=== PATIENT | male | born 1980 | race Caucasian/White ===

== ENCOUNTER 2020-10-11 12:23 | Outpatient (CLI) | payer OTHER, SELFPAY ==
[2020-10-11 13:52] LABS: SARS Covid-2 Antigen Negative (Negative)
[2020-10-12 17:41] LABS: Coronavirus Test Green County Not Detected
== END 2020-10-11 12:24 | disposition home or self-care (01) ==
LOC: LAB 12:29
PROVIDERS: PCP Internal Medicine; Visit Provider Family Medicine
DX: Z20.828 Contact with and (suspected) exposure to other viral communicable diseases (principal)
CPT/HCPCS: 87426; 87635

== ENCOUNTER 2020-12-17 20:28 | Outpatient (CLI) | payer OTHER, SELFPAY ==
[2020-12-18 16:25] LABS: Coronavirus Test Green County Not Detected
== END 2020-12-17 20:29 | disposition home or self-care (01) ==
LOC: LAB 20:31
PROVIDERS: PCP Internal Medicine; Visit Provider Family Medicine
DX: Z11.52 Encounter for screening for COVID-19 (principal)
CPT/HCPCS: 87635

== ENCOUNTER 2021-04-14 10:54 | Outpatient (CLI) | payer OTHER, SELFPAY ==
[2021-04-14 11:34] LABS: Basophils % 0.6 %; Eosinophils # 0.1 10^3/uL (0.0-0.8); Hematocrit 47.6 % (42.0-52.0); Hemoglobin 15.3 g/dL (11.7-16.6); Lymphocytes # 2.2 10^3/uL (0.8-4.8); Mean Corpuscular HGB Conc 32.1 g/dL (30.0-36.0); Mean Corpuscular Hemoglobin 27.7 pg (28.0-34.0); Mean Corpuscular Volume 86.1 fL (80-94); Mean Platelet Volume 9.5 fL (7.4-10.4); Monocytes # 0.6 10^3/uL (0.2-0.9); Monocytes % 8.5 %; Neutrophils # 4.01 10^3/uL (1.8-7.7); Neutrophils % 57.5 %; Nucleated Red Blood Cells % 0 %; Platelet Count 252 10^3/cmm (130-400); Red Blood Count 5.53 10^6/uL (4.1-5.3); Red Cell Distribution Width 13.2 % (12.1-15.1)
[2021-04-14 11:56] LABS: HCG Tumor Marker 1 mIU/mL (0-3)
[2021-04-14 12:08] LABS: Alanine Aminotransferase 23 U/L (0-41); Albumin Level 4.2 g/dL (3.5-5.2); Alkaline Phosphatase 96 IU/L (40-130); Anion Gap 12.6 (5-19); Aspartate Amino Transferase 22 U/L (0-40); Blood Urea Nitrogen 9 mg/dL (6-20); Calcium 8.9 mg/dL (8.5-10.5); Carbon Dioxide 31 mmol/L (22-29); Chloride 101 mmol/L (98-107); Chol HDL Ratio 6.05 mg/dL (1.0-5.00); Cholesterol 242 mg/dL (0-200); Creatine Phosphokinase 166 U/L (39-308); Globulin 3.3 g/dL (1.3-4.6); Glomerular Filtration Rate 126.2 mL/min (90-130); Glucose 96 mg/dL (65-115); HDL Cholesterol 40 mg/dL (60-100); LDL Cholesterol Calculated 134 mg/dL (50-129); LDL HDL Ratio 3.35 RATIO (0.00-3.22); Lactate Dehydrogenase 179 U/L (135-225); Osmolality Calculated 289 mOsm/kg (285-295); Potassium 4.6 mmol/L (3.5-5.1); Sodium 140 mmol/L (136-145); Total Bilirubin 0.7 mg/dL (0.15-1.2); Total Protein 7.5 g/dL (6.6-8.7); Triglycerides 342 mg/dL (0-150)
[2021-04-14 13:19] LABS: Tumor Marker Alpha Fetoprotein 2.2 ng/mL (0-8.3)
[2021-04-14 15:45] LABS: Estmated Average Glucose 114; Hemoglobin A1C 5.6 % (4.0-6.0)
== END 2021-04-14 10:55 | disposition home or self-care (01) ==
PROVIDERS: Student in an Organized Health Care Education/Training Program; PCP Internal Medicine; Visit Provider Internal Medicine
DX: Z00.00 Encounter for general adult medical examination without abnormal findings (principal)
CPT/HCPCS: 36415; 80053; 80061; 82105; 82550; 83036; 83615; 84702; 85025

== ENCOUNTER 2022-06-02 11:33 | Outpatient (CLI) | payer OTHER, SELFPAY ==
[2022-06-02 12:03] LABS: Basophils % 0.6 %; Eosinophils # 0.1 10^3/uL (0.0-0.8); Eosinophils % 1.5 %; Hematocrit 46.5 % (42.0-52.0); Hemoglobin 15.3 g/dL (11.7-16.6); Lymphocytes # 2.3 10^3/uL (0.8-4.8); Lymphocytes % 33.3 %; Mean Corpuscular HGB Conc 32.9 g/dL (30.0-36.0); Mean Corpuscular Hemoglobin 27.5 pg (28.0-34.0); Mean Corpuscular Volume 83.5 fl (80-94); Mean Platelet Volume 9.5 fL (7.4-10.4); Monocytes # 0.6 10^3/uL (0.2-0.9); Monocytes % 8.4 %; Neutrophils % 55.8 %; Nucleated Red Blood Cells % 0 %; Platelet Count 258 10^3/cmm (130-400); Red Blood Count 5.57 10^6/uL (4.1-5.3); Red Cell Distribution Width 13.5 % (12.1-15.1); White Blood Count 6.8 10^3/uL (4.0-10.0)
[2022-06-02 12:37] LABS: Estmated Average Glucose 114; Hemoglobin A1C 5.6 % (4.0-6.0)
[2022-06-02 12:58] LABS: HCG Tumor Marker 1 mIU/mL (0-3)
[2022-06-02 13:09] LABS: Alanine Aminotransferase 26 U/L (0-41); Albumin Level 4.5 g/dL (3.5-5.2); Alkaline Phosphatase 103 IU/L (40-130); Anion Gap 14.7 (5-19); Aspartate Amino Transferase 25 U/L (0-40); Blood Urea Nitrogen 10 mg/dL (6-20); Calcium 9.4 mg/dL (8.5-10.5); Carbon Dioxide 28 mmol/L (22-29); Chloride 103 mmol/L (98-107); Chol HDL Ratio 5.95 mg/dL (1.0-5.00); Cholesterol 232 mg/dL (0-200); Creatine Phosphokinase 189 U/L (39-308); Globulin 3.1 g/dL (1.3-4.6); Glucose 87 mg/dL (65-115); HDL Cholesterol 39 mg/dL (60-100); LDL Cholesterol Calculated 139 mg/dL (50-129); LDL HDL Ratio 3.56 RATIO (0.00-3.22); Lactate Dehydrogenase 207 U/L (135-225); Osmolality Calculated 290 mOsm/kg (285-295); Potassium 4.7 mmol/L (3.5-5.1); Sodium 141 mmol/L (136-145); Total Bilirubin 0.5 mg/dL (0.15-1.2); Total Protein 7.6 g/dL (6.6-8.7); Triglycerides 268 mg/dL (0-150)
[2022-06-02 13:52] LABS: Tumor Marker Alpha Fetoprotein 2.4 ng/mL (0-8.3)
[2022-06-02 14:26] LABS: 25 Hydroxy Vitamin D 22 ng/mL (30-100)
== END 2022-06-02 11:34 | disposition home or self-care (01) ==
LOC: LAB 11:37
PROVIDERS: PCP Internal Medicine; Visit Provider Internal Medicine
DX: Z01.89 Encounter for other specified special examinations (principal)
CPT/HCPCS: 36415; 80053; 80061; 82105; 82306; 82550; 83036; 83615; 84702; 85025

== ENCOUNTER 2022-06-27 11:16 | Outpatient (CLI) | payer OTHER, SELFPAY ==
[2022-06-27 13:40] LABS: Adenovirus Not Detected (NOT DETECT); Chlamydia Pneumoniae Not Detected (NOT DETECT); Coronavirus 229E,HKU1,NL63,OC4 Not Detected (NOT DETECT); Human Metapneumovirus Not Detected (NOT DETECT); Human Rhinovirus/Enterovirus Not Detected (NOT DETECT); Influenza A Not Detected (NOT DETECT); Influenza A H1 Not Detected (NOT DETECT); Influenza A H1-2009 Not Detected (NOT DETECT); Influenza A H3 Not Detected (NOT DETECT); Influenza B Not Detected (NOT DETECT); Mycoplasma Pneumoniae Not Detected (NOT DETECT); Parainfluenza Virus Type 1 Not Detected (NOT DETECT); Parainfluenza Virus Type 2 Not Detected (NOT DETECT); Parainfluenza Virus Type 3 Not Detected (NOT DETECT); Parainfluenza Virus Type 4 Not Detected (NOT DETECT); Respiratory Syncytial Virus A Not Detected (NOT DETECT); Respiratory Syncytial Virus B Not Detected (NOT DETECT); SARS-COV-2 Detected (NOT DETECT)
== END 2022-06-27 11:17 | disposition home or self-care (01) ==
PROVIDERS: PCP Internal Medicine; Visit Provider Family Medicine
DX: Z20.822 Contact with and (suspected) exposure to COVID-19 (principal)
CPT/HCPCS: 87635

== ENCOUNTER 2023-01-25 16:40 | Outpatient (CLI) | payer OTHER, SELFPAY ==
[2023-01-25 18:58] LABS: Adenovirus Not Detected (NOT DETECT); Chlamydia Pneumoniae Not Detected (NOT DETECT); Coronavirus 229E,HKU1,NL63,OC4 Not Detected (NOT DETECT); Human Metapneumovirus Not Detected (NOT DETECT); Human Rhinovirus/Enterovirus Not Detected (NOT DETECT); Influenza A Not Detected (NOT DETECT); Influenza A H1 Not Detected (NOT DETECT); Influenza A H1-2009 Not Detected (NOT DETECT); Influenza A H3 Not Detected (NOT DETECT); Influenza B Not Detected (NOT DETECT); Mycoplasma Pneumoniae Not Detected (NOT DETECT); Parainfluenza Virus Type 1 Not Detected (NOT DETECT); Parainfluenza Virus Type 2 Not Detected (NOT DETECT); Parainfluenza Virus Type 3 Not Detected (NOT DETECT); Parainfluenza Virus Type 4 Not Detected (NOT DETECT); Respiratory Syncytial Virus A Not Detected (NOT DETECT); Respiratory Syncytial Virus B Not Detected (NOT DETECT); SARS-COV-2 Not Detected (NOT DETECT)
== END 2023-01-25 16:41 | disposition home or self-care (01) ==
LOC: LAB 16:40
PROVIDERS: PCP Internal Medicine; Visit Provider Family Medicine
DX: Z01.89 Encounter for other specified special examinations (principal)
CPT/HCPCS: 87486; 87581; 87633

== ENCOUNTER 2023-04-22 07:45 | Outpatient (CLI) | payer OTHER, SELFPAY ==
[2023-04-22 08:06] LABS: Basophils % 0.6 %; Eosinophils # 0.2 10^3/uL (0.0-0.8); Eosinophils % 3.4 %; Hematocrit 48.9 % (42.0-52.0); Lymphocytes # 2.7 10^3/uL (0.8-4.8); Lymphocytes % 39.6 %; Mean Corpuscular HGB Conc 32.7 g/dL (30.0-36.0); Mean Corpuscular Hemoglobin 27.4 pg (28.0-34.0); Mean Corpuscular Volume 83.7 fl (80-94); Mean Platelet Volume 9.3 fL (7.4-10.4); Monocytes # 0.5 10^3/uL (0.2-0.9); Monocytes % 7.9 %; Neutrophils # 3.31 10^3/uL (1.8-7.7); Neutrophils % 48.2 %; Nucleated Red Blood Cells % 0 %; Platelet Count 252 10^3/cmm (130-400); Red Blood Count 5.84 10^6/uL (4.1-5.3); Red Cell Distribution Width 13.9 % (12.1-15.1); White Blood Count 6.9 10^3/uL (4.0-10.0)
[2023-04-22 08:30] LABS: Estmated Average Glucose 120; Hemoglobin A1C 5.8 % (4.0-6.0)
[2023-04-22 08:36] LABS: Free T4 Free Thyroxine 1.45 ng/dL (0.82-1.77); HCG Tumor Marker 1 mIU/mL (0-3); Thyroid Stimulating Hormone 2.23 uIU/mL (0.27-4.20); Tumor Marker Alpha Fetoprotein 2.4 ng/mL (0-8.3)
[2023-04-22 08:47] LABS: Alanine Aminotransferase 24 U/L (0-41); Albumin Level 4.2 g/dL (3.5-5.2); Alkaline Phosphatase 108 U/L (40-130); Anion Gap 13.3 (5-19); Aspartate Amino Transferase 21 U/L (0-40); Blood Urea Nitrogen 7 mg/dL (6-20); Carbon Dioxide 30 mmol/L (22-29); Chloride 101 mmol/L (98-107); Chol HDL Ratio 6.18 mg/dL (1.0-5.00); Cholesterol 235 mg/dL (0-200); Globulin 3.5 g/dL (1.3-4.6); Glomerular Filtration Rate 124.9 mL/min (90-130); Glucose 92 mg/dL (65-115); HDL Cholesterol 38 mg/dL (60-100); LDL Cholesterol Calculated 155 mg/dL (50-129); LDL HDL Ratio 4.08 RATIO (0.00-3.22); Lactate Dehydrogenase 164 U/L (135-225); Osmolality Calculated 288 mOsm/kg (285-295); Potassium 4.3 mmol/L (3.5-5.1); Sodium 140 mmol/L (136-145); Total Bilirubin 0.9 mg/dL (0.15-1.2); Total Protein 7.7 g/dL (6.6-8.7); Triglycerides 212 mg/dL (0-150)
[2023-04-22 09:22] LABS: 25 Hydroxy Vitamin D 22 ng/mL (30-100)
== END 2023-04-22 07:46 | disposition home or self-care (01) ==
PROVIDERS: PCP Family Medicine; Visit Provider Family Medicine
DX: C62.90 Malignant neoplasm of unspecified testis, unspecified whether descended or undescended (principal); E78.5 Hyperlipidemia, unspecified; E55.9 Vitamin D deficiency, unspecified
CPT/HCPCS: 36415; 80053; 80061; 82105; 82306; 83036; 83615; 84439; 84443; 84702; 85025

== ENCOUNTER → 2023-11-24 09:04 | Outpatient (BNVA) | payer OTHER, SELFPAY | PROVIDERS: PCP Family Medicine; Visit Provider Family Medicine | DX: E78.5 Hyperlipidemia, unspecified (principal); E55.9 Vitamin D deficiency, unspecified | CPT/HCPCS: 80053; 80061; 82306 ==

== ENCOUNTER 2024-05-10 05:01 | Emergency (ER) | payer OTHER, SELFPAY ==
[2024-05-10 05:02] VITALS: BP 152/99; PULSE 97; RESP 16; TEMP 36.6; O2SAT 95; BMI 27.8
--- NOTE | 2024-05-10 05:12 | CTR_ITS ---
PROCEDURE INFORMATION: Exam: CT Lumbar Spine Without Contrast Exam date and time: 05/10/2024 5:42 AM Age: 43 years old Clinical indication: Low back pain; Additional info: Sudden pain from missed step, HX of testicular cancer, TECHNIQUE: Imaging protocol: Computed tomography of the lumbar spine without contrast. Radiation optimization: All CT scans at this facility use at least one of these dose optimization techniques: automated exposure control; mA and/or kV adjustment per patient size (includes targeted exams where dose is matched to clinical indication); or iterative reconstruction. COMPARISON: CT abdomen pelvis wo con [id number] 05/10/2024 5:40 AM RADIATION DOSE METRICS: Total DLP (mGy-cm): 879 FINDINGS: Bones/joints: Minor nonspecific area of sclerosis left iliac bone. Degenerative hypertrophic vertebral body formation. Degenerative endplate irregularity. Narrowing of L1, L2, L4 and L5 interspaces. Focal posterior disc margin calcification L5-S1. No acute fracture. L1-L2: No significant disc bulge or herniation. No severe spinal canal stenosis. No significant neural foraminal narrowing. L2-L3: No significant disc bulge or herniation. No severe spinal canal stenosis. No significant neural foraminal narrowing. L3-L4: No significant disc bulge or herniation. No severe spinal canal stenosis. No significant neural foraminal narrowing. L4-L5: Posterior diffuse broad-based disc bulge. Mild facet arthritis and ligamentum flavum thickening manifest mild central canal stenosis. Mild inferior neural foraminal narrowing. L5-S1: No severe canal stenosis. Soft tissues: Unremarkable. CT/CT lumbar spine wo con* [id number] IMPRESSION: 1. Degenerative hypertrophic formation and facet arthritis. 2. Posterior diffuse broad-based disc bulge L4-L5.
--- NOTE | 2024-05-10 05:16 | CTR_ITS ---
PROCEDURE INFORMATION: Exam: CT Abdomen And Pelvis Without Contrast Exam date and time: 05/10/2024 5:40 AM Age: 43 years old Clinical indication: Other: Pain low back; Prior surgery; Surgery date: 6+ months; Surgery type: Orchiectomy; Additional info: Missed step hurt sacrum/post pelvis, R hip, hxtesticularcanc TECHNIQUE: Imaging protocol: Computed tomography of the abdomen and pelvis without contrast. Radiation optimization: All CT scans at this facility use at least one of these dose optimization techniques: automated exposure control; mA and/or kV adjustment per patient size (includes targeted exams where dose is matched to clinical indication); or iterative reconstruction. COMPARISON: No relevant prior studies available. RADIATION DOSE METRICS: Total DLP (mGy-cm): 825.8 FINDINGS: Liver: Normal. No mass. Gallbladder and biliary ducts: Normal. No calcified stones. No ductal dilation. Pancreas: Normal. No ductal dilation. Spleen: Normal. No splenomegaly. Adrenal glands: Normal. No mass. Kidneys and ureters: Normal. No hydronephrosis. Stomach and bowel: Unremarkable. No obstruction. No mucosal thickening. Appendix: No evidence of appendicitis. Intraperitoneal space: Unremarkable. No free air. No significant fluid collection. Vasculature: Unremarkable. No abdominal aortic aneurysm. Lymph nodes: A few scattered retroperitoneal lymph nodes largest on the left measures 1.8 cm. Urinary bladder: Unremarkable as visualized. Reproductive: Unremarkable as visualized. Bones/joints: Degenerative change of the spine. Soft tissues: Unremarkable. Other findings: Question segment of abnormal wall thickening versus nondistention at the level of the upper rectum. CT/CT abdomen pelvis con [id number] IMPRESSION: 1. No acute intra-abdominal abnormality. 2. Question segment of abnormal wall thickening versus nondistention of the level of the upper rectum or rectosigmoid junction. 3. Small nonspecific retroperitoneal lymph nodes largest on the left 1.8 cm.
--- NOTE | 2024-05-10 05:17 | ED_ITS ---
Documented by User: Paulino Taylor DO 05/10/24 18:11 HPI - Extremity Problem 2 General: Chief complaint: Extremity Injury, Lower Stated complaint: back pain Time Seen by Provider: 05/10/24 05:05 History of Present Illness: Patient comes in today with visible pain in his low back and sacrum right hip region. And also his right lateral calf area. Patient said he was working outside yesterday in his yard and carrying some stuff backing up when he missed a step and Stumbled. He did not have instant pain in these areas but about an hour later the pain came on and just gradually got worse to the was unbearable. Patient tried anti-inflammatories, muscle relaxers, creams and rubs, and prednisone none of these helped much at all. Patient only slept about 2 hours last night. The pain is there all the time. The pain is less when the patient bends over at the waist and rests his upper body on his elbows on the table. lifting the right leg a few inches off the ground also helps some. Patient does have a history of testicular cancer with orchiectomy proximately 22 years ago. Patient and are concerned about pathologic fracture and/or return of the cancer. Patient states he had this once before several years ago but it was nowhere near to this bad and it resolved itself in about 10 days. 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 Surgical History History of unilateral orchiectomy Family History Mother Cancer breast Other Diabetes Hyperlipidemia Hypertension Denies family history of CAD (coronary artery disease) Clotting disorder Dementia Psychiatric illness Chronic kidney disease (CKD) Anesthesia complication Bleeding disorder Lung disease Stroke Social History Smoking and tobacco/nicotine status: never used tobacco/nicotine Alcohol intake: never Substance/Drug Use: never Lives independently: Yes Marital status: Current occupational status: employed Current occupation: Hospitalist [employer] Physical Exam 2 Const: COMMON NORMALS: average body habitus, patient oriented x3, no limitations, healthy appearing, alert and well nourished HENMT: COMMON NORMALS: normocephalic, atraumatic, hearing grossly normal bilaterally, external ears normal, Normal external nose present and moist oral mucous membranes HEAD & SCALP: normocephalic and atraumatic NOSE: Normal external nose present EXTERNAL EAR: Yes external ears normal Neck/C-Spine: COMMON NORMALS: no JVD Chest: COMMONS NORMALS: normal inspection of the chest Resp: COMMON NORMALS: normal respiratory effort, No retractions and No use of accessory muscles Cardio: COMMON NORMALS: no JVD, regular rate and regular rhythm RATE: r egular rate RHYTHM: regular rhythm GI: COMMON NORMALS: Normal to inspection, nondistended, normoactive bowel sounds present Back/Pelvis: OTHER: Minimally tender to palpate over right lower lumbar paraspinal area More painful to palpate over right gluteus, hip trochanter region. Neuro: COMMON NORMALS: patient oriented x3 SENSORIUM/ORIENTATION: Yes alert Course 2 Vital Signs: Vital signs: Vital Signs Temperature 97.9 F 05/10/24 05:02 Pulse Rate 96 05/10/24 07:40 Respiratory Rate 18 05/10/24 09:10 Blood Pressure 134/94 05/10/24 09:10 Pulse Oximetry 98 05/10/24 09:10 Oxygen Delivery Me thod Room Air 05/10/24 09:09 MDM - Extremity (Nontraumatic) Medical Decision Making Care transferred over to Dr. Padron at shift change, patient was given 30 mg Toradol IM, lumbar CT and abdominal pelvis CT without contrast were obtained. Awaiting results. Lab Data I reviewed the patient's lab results. 05/10/24 05:24 05/10/24 05:24 Radiology Impressions Lumbar Spine CT 05/10/24 05:12 IMPRESSION: 1. Degenerative hypertrophic formation and facet arthritis. 2. Posterior diffuse broad-based disc bulge L4-L5. Abdomen/Pelvis CT 05/10/24 05:16 IMPRESSION: 1. No acute intra-abdominal abnormality. 2. Question segment of abnormal wall thickening versus nondistention of the level of the upper rectum or rectosigmoid junction. 3. Small nonspecific retroperitoneal lymph nodes largest on the left 1.8 cm. Laboratory Results WBC 7.87 10^3/uL (3.29-11.43) 05/10/24 05:24 RBC 5.59 10^6/uL (3.85-5.65) 05/10/24 05:24 Hgb 15.50 g/dL (11.27-16.99) 05/10/24 05:24 Hct 46.7 % (37-53) 05/10/24 05:24 MCV 83.5 fl (82-101) 05/10/24 05:24 MCH 27.7 pg (27-33) 05/10/24 05:24 MCHC 33.2 g/dL (30-55) 05/10/24 05:24 RDW 13.6 % (12.1-15.1) 05/10/24 05:24 Plt Count 250 10^3/cmm (157-399) 05/10/24 05:24 MPV 9.8 fL (7.4-10.4) 05/10/24 05:24 Neut % (Auto) 84.9 % 05/10/24 05:24 Lymph % (Auto) 14.0 % 05/10/24 05:24 Crosby % (Auto) 0.4 % 05/10/24 05:24 Eos % (Auto) 0.1 % 05/10/24 05:24 Baso % (Auto) 0.1 % 05/10/24 05:24 Neut # (Auto) 6.68 10^3/uL (1.8-7.7) 05/10/24 05:24 Lymph # (Auto) 1.1 10^3/uL (0.8-4.8) 05/10/24 05:24 Crosby # (Auto) 0.0 10^3/uL (0.2-0.9) L 05/10/24 05:24 Eos # (Auto) 0.0 10^3/uL (0.0-0.8) 05/10/24 05:24 Baso # (Auto) 0.0 10^3/uL (0.0-0.1) 05/10/24 05:24 Nucleated RBC % (auto) 0 % 05/10/24 05:24 Nucleated RBCs # 0.0 /100WBC 05/10/24 05:24 Sodium 141 mmol/L (136-145) 05/10/24 05:24 Potassium 4.5 mmol/L (3.5-5.1) 05/10/24 05:24 Chloride 103 mmol/L (98-107) 05/10/24 05:24 Carbon Dioxide 25 mmol/L (22-29) 05/10/24 05:24 Anion Gap 17.5 (5-19) 05/10/24 05:24 BUN 10 mg/dL (6-20) 05/10/24 05:24 Creatinine 0.7 mg/dL (0.7-1.2) 05/10/24 05:24 GFR Calculation 124.3 mL/min (90-130) 05/10/24 05:24 Glucose 220 mg/dL (65-115) H 05/10/24 05:24 Calculated Osmolality 298 mOsm/kg (285-295) H 05/10/24 05:24 Calcium 9.1 mg/dL (8.5-10.5) 05/10/24 05:24 Total Bilirubin 0.7 mg/dL (0.15-1.2) 05/10/24 05:24 AST 25 U/L (0-40) 05/10/24 05:24 ALT 30 U/L (0-41) 05/10/24 05:24 Alkaline Phosphatase 105 U/L (40-130) 05/10/24 05:24 C-Reactive Protein 3.0 mg/L (0.0-4.9) 05/10/24 05:24 Total Protein 8.0 g/dL (6.6-8.7) 05/10/24 05:24 Albumin 4.6 g/dL (3.5-5.2) 05/10/24 05:24 Globulin 3.4 g/dL (1.3-4.6) 05/10/24 05:24 All radiology interpretation(s) finalized by discharge Discharge Plan Discharge Patient Disposition: Home Clinical Impression: Lumbar radiculopathy, right Condition: Stable Prescriptions: New tizanidine 4 mg tablet 4 mg PO Q6H PRN (Reason: muscle spasticity) Qty: 20 0RF Rx Instructions: do not exceed 3 doses per 24 hrs hydrocodone-acetaminophen 5-325 mg tablet 1 tab PO Q6H PRN (Reason: pain) Qty: 25 0RF prednisone 20 mg tablet 20 mg PO TID Qty: 15 0RF Rx Instructions: 1 p.o. 3 times daily x3 days, 1 p.o. twice daily x2 days, 1 p.o. daily x2 days diclofenac sodium 75 mg tablet,delayed release (DR/EC) 75 mg PO Q12H PRN (Reason: pain) Qty: 20 0RF No Action simvastatin 20 mg tablet 20 mg PO DAILY Qty: 90 4RF losartan 25 mg tablet 25 mg PO DAILY Discharge Orders: Discharge ED (Routine); Ordered 05/10/24 Ordered By: Augusto Vincent Referrals: Best Sargent MD [Primary Care Provider] - Patient Instructions: Lumbar Radiculopathy (ED), Lower Back Exercises (ED), Opioid Safety, Pain Management Activity Restrictions/Additional Instructions: Thank you for choosing [facility] for your healthcare needs today. It is very important that you follow up as instructed or that you return to the Emergency Department should you have concerns or if your condition changes or worsens in any way. Follow-up with your primary care doctor if not improving for consideration of physical therapy and/or advanced imaging as appropriate. Sign Out Sign Out Data: Patient Sign Out occurred on 05/10/24 at 06:13. Patient's care was discussed, and care was transferred from Paulino Taylor DO to Augusto Vincent DO. 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 Surgical History History of unilateral orchiectomy Family History Mother Cancer breast Other Diabetes Hyperlipidemia Hypertension Denies family history of CAD (coronary artery disease) Clotting disorder Dementia Psychiatric illness Chronic kidney disease (CKD) Anesthesia complication Bleeding disorder Lung disease Stroke Social History Smoking and tobacco/nicotine status: never used tobacco/nicotine Alcohol intake: never Substance/Drug Use: never Lives independently: Yes Marital status: Current occupational status: employed 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 Padron at shift change, patient was given 30 mg Toradol IM, lumbar CT and abdominal pelvis CT without contrast were obtained. Awaiting results. Care assumed at change of shift. Patient given Norflex dexamethasone eventually was able to convince him to allow us to give him some morphine. Will give him titrated doses and he did get moderate relief of his symptoms. CT shows a L4-5 disc impingement consistent with the findings on his exam and history. Discharge him home on a steroid taper tizanidine to take as needed as well as diclofenac to use as needed and hydrocodone as needed. Encouraged him to follow-up with his primary care doctor if not improving for consideration of PT and/or advanced imaging as deemed appropriate. Return if pain is not controlled. Lab Data 05/10/24 05:24 05/10/24 05:24 Radiology Impressions Lumbar Spine CT 05/10/24 05:12 IMPRESSION: 1. Degenerative hypertrophic formation and facet arthritis. 2. Posterior diffuse broad-based disc bulge L4-L5. Abdomen/Pelvis CT 05/10/24 05:16 IMPRESSION: 1. No acute intra-abdominal abnormality. 2. Question segment of abnormal wall thickening versus nondistention of the level of the upper rectum or rectosigmoid junction. 3. Small nonspecific retroperitoneal lymph nodes largest on the left 1.8 cm. Laboratory Results WBC 7.87 10^3/uL (3.29-11.43) 05/10/24 05:24 RBC 5.59 10^6/uL (3.85-5.65) 05/10/24 05:24 Hgb 15.50 g/dL (11.27-16.99) 05/10/24 05:24 Hct 46.7 % (37-53) 05/10/24 05:24 MCV 83.5 fl (82-101) 05/10/24 05:24 MCH 27.7 pg (27-33) 05/10/24 05:24 MCHC 33.2 g/dL (30-55) 05/10/24 05:24 RDW 13.6 % (12.1-15.1) 05/10/24 05:24 Plt Count 250 10^3/cmm (157-399) 05/10/24 05:24 MPV 9.8 fL (7.4-10.4) 05/10/24 05:24 Neut % (Auto) 84.9 % 05/10/24 05:24 Lymph % (Auto) 14.0 % 05/10/24 05:24 Crosby % (Auto) 0.4 % 05/10/24 05:24 Eos % (Auto) 0.1 % 05/10/24 05:24 Baso % (Auto) 0.1 % 05/10/24 05:24 Neut # (Auto) 6.68 10^3/uL (1.8-7.7) 05/10/24 05:24 Lymph # (Auto) 1.1 10^3/uL (0.8-4.8) 05/10/24 05:24 Crosby # (Auto) 0.0 10^3/uL (0.2-0.9) L 05/10/24 05:24 Eos # (Auto) 0.0 10^3/uL (0.0-0.8) 05/10/24 05:24 Baso # (Auto) 0.0 10^3/uL (0.0-0.1) 05/10/24 05:24 Nucleated RBC % (auto) 0 % 05/10/24 05:24 Nucleated RBCs # 0.0 /100WBC 05/10/24 05:24 Sodium 141 mmol/L (136-145) 05/10/24 05:24 Potassium 4.5 mmol/L (3.5-5.1) 05/10/24 05:24 Chloride 103 mmol/L (98-107) 05/10/24 05:24 Carbon Dioxide 25 mmol/L (22-29) 05/10/24 05:24 Anion Gap 17.5 (5-19) 05/10/24 05:24 BUN 10 mg/dL (6-20) 05/10/24 05:24 Creatinine 0.7 mg/dL (0.7-1.2) 05/10/24 05:24 GFR Calculation 124.3 mL/min (90-130) 05/10/24 05:24 Glucose 220 mg/dL (65-115) H 05/10/24 05:24 Calculated Osmolality 298 mOsm/kg (285-295) H 05/10/24 05:24 Calcium 9.1 mg/dL (8.5-10.5) 05/10/24 05:24 Total Bilirubin 0.7 mg/dL (0.15-1.2) 05/10/24 05:24 AST 25 U/L (0-40) 05/10/24 05:24 ALT 30 U/L (0-41) 05/10/24 05:24 Alkaline Phosphatase 105 U/L (40-130) 05/10/24 05:24 C-Reactive Protein 3.0 mg/L (0.0-4.9) 05/10/24 05:24 Total Protein 8.0 g/dL (6.6-8.7) 05/10/24 05:24 Albumin 4.6 g/dL (3.5-5.2) 05/10/24 05:24 Globulin 3.4 g/dL (1.3-4.6) 05/10/24 05:24 Discharge Plan Discharge Patient Disposition: Home Clinical Impression: Lumbar radiculopathy, right Condition: Stable Prescriptions: New tizanidine 4 mg tablet 4 mg PO Q6H PRN (Reason: muscle spasticity) Qty: 20 0RF Rx Instructions: do not exceed 3 doses per 24 hrs hydrocodone-acetaminophen 5-325 mg tablet 1 tab PO Q6H PRN (Reason: pain) Qty: 25 0RF prednisone 20 mg tablet 20 mg PO TID Qty: 15 0RF Rx Instructions: 1 p.o. 3 times daily x3 days, 1 p.o. twice daily x2 days, 1 p.o. daily x2 days diclofenac sodium 75 mg tablet,delayed release (DR/EC) 75 mg PO Q12H PRN (Reason: pain) Qty: 20 0RF No Action simvastatin 20 mg tablet 20 mg PO DAILY Qty: 90 4RF losartan 25 mg tablet 25 mg PO DAILY Discharge Orders: Discharge ED (Routine); Ordered 05/10/24 Ordered By: Augusto Vincent Referrals: Best Sargent MD [Primary Care Provider] - Patient Instructions: Lumbar Radiculopathy (ED), Lower Back Exercises (ED), Opioid Safety, Pain Management Activity Restrictions/Additional Instructions: Thank you for choosing [facility] for your healthcare needs today. It is very important that you follow up as instructed or that you return to the Emergency Department should you have concerns or if your condition changes or worsens in any way. Follow-up with your primary care doctor if not improving for consideration of physical therapy and/or advanced imaging as appropriate. Sign Out Sign Out Data: Patient Sign Out occurred on 05/10/24 at 06:13. Patient's care was discussed, and care was transferred from Paulino Taylor DO to Augusto Vincent DO. Coding Level of Care Code ED Specialty Finishing Utility Person for Mechelle Garcia
[2024-05-10 05:29] LABS: Basophils % 0.1 %; Eosinophils % 0.1 %; Hematocrit 46.7 % (37-53); Lymphocytes # 1.1 10^3/uL (0.8-4.8); Mean Corpuscular HGB Conc 33.2 g/dL (30-55); Mean Corpuscular Hemoglobin 27.7 pg (27-33); Mean Corpuscular Volume 83.5 fl (82-101); Mean Platelet Volume 9.8 fL (7.4-10.4); Monocytes % 0.4 %; Neutrophils # 6.68 10^3/uL (1.8-7.7); Neutrophils % 84.9 %; Nucleated Red Blood Cells % 0 %; Platelet Count 250 10^3/cmm (157-399); Red Blood Count 5.59 10^6/uL (3.85-5.65); Red Cell Distribution Width 13.6 % (12.1-15.1); White Blood Count 7.87 10^3/uL (3.29-11.43)
[2024-05-10] MEDS: ketorolac 30 mg/mL INJ IVP (05:29)
[2024-05-10 05:45] LABS: Alanine Aminotransferase 30 U/L (0-41); Albumin Level 4.6 g/dL (3.5-5.2); Alkaline Phosphatase 105 U/L (40-130); Anion Gap 17.5 (5-19); Aspartate Amino Transferase 25 U/L (0-40); Blood Urea Nitrogen 10 mg/dL (6-20); Calcium 9.1 mg/dL (8.5-10.5); Carbon Dioxide 25 mmol/L (22-29); Chloride 103 mmol/L (98-107); Creatinine Clr Calc Pharmacy 160.0249; Globulin 3.4 g/dL (1.3-4.6); Glomerular Filtration Rate 124.3 mL/min (90-130); Glucose 220 mg/dL (65-115); Osmolality Calculated 298 mOsm/kg (285-295); Potassium 4.5 mmol/L (3.5-5.1); Sodium 141 mmol/L (136-145); Total Bilirubin 0.7 mg/dL (0.15-1.2)
[2024-05-10] MEDS: dexamethasone 10 mg/mL INJ IM (05:53)
[2024-05-10] MEDS: orphenadrine 30 mg/mL Inj 2 mL 60 MG IM (05:56)
[2024-05-10 06:44] VITALS: BP 144/98; PULSE 101; RESP 16; O2SAT 97
[2024-05-10] MEDS: ondansetron 2 mg/ML SDV 2 mL 4 MG IVP (06:49)
[2024-05-10] MEDS: morphine 4 mg/mL SDV 1 mL 2 MG IVP ×3 (06:50→08:18)
[2024-05-10 07:40] VITALS: BP 142/93; PULSE 96; RESP 18; O2SAT 98
[2024-05-10 08:18] VITALS: RESP 17
[2024-05-10 09:09] VITALS: BP 134/94; RESP 18; O2SAT 98
[2024-05-10] MEDS: morphine 4 mg/mL SDV 1 mL IVP (09:09)
[2024-05-10 09:10] VITALS: BP 134/94; RESP 18; O2SAT 98
== END 2024-05-10 09:43 | disposition home or self-care (01) ==
PROVIDERS: Emergency Medicine; Emergency Provider Family Medicine; PCP Family Medicine
DX: M54.16 Radiculopathy, lumbar region (principal); I10 Essential (primary) hypertension; E78.5 Hyperlipidemia, unspecified; Z85.47 Personal history of malignant neoplasm of testis
CPT/HCPCS: 72131; 74176; 80053; 85025; 86140; 96374; 96375; 96376; 99285; J1100; J1885; J2270; J2360; J2405

== ENCOUNTER 2024-05-12 13:57 | Outpatient (CLI) | payer OTHER, SELFPAY ==
--- NOTE | 2024-05-12 14:30 | MR_ITS ---
WS: [id number] MRI LUMBAR SPINE WITH AND WITHOUT CONTRAST HISTORY: Back Pain, history of testicular cancer. COMPARISON: CT 05/10/2024 TECHNIQUE: Sagittal and axial multisequence imaging is submitted. Postcontrast imaging 20 mL IV. Mild degenerative disc disease in the cervical spine. There is facet arthropathy at T2-3. Hemangioma at T3. Posterior lumbar alignment is normal. Mild disc base narrowing and desiccation at L5-S1 with chronic changes in the adjacent endplates. Conus terminates normally at L1-2 disc level. L1-L2: Mild annular disc bulging. No high-grade stenosis. L2-L3: Mild annular disc bulging with facet and ligamentum flavum hypertrophy. Very mild encroachment upon the subarticular recesses. L3-L4: Mild disc bulging. No stenosis. L4-L5: Mild annular disc bulging slightly asymmetric to the RIGHT. RIGHT foraminal disc protrusion an d small osteophyte. There is mild disc encroachment into the RIGHT subarticular recess. The disc cont acts the RIGHT L4 and L5 nerve roots. There is an additional soft tissue extending posterior to the c entral L4 vertebral body which is most likely an extruded disc fragment. This disc fragment is probab ly from the L4-5 parent disc. Fragment extends into the RIGHT subarticular recess contacting and defo rming the RIGHT lateral thecal sac. Mild RIGHT foraminal narrowing. L5-S1: Mild annular disc bulging with a moderate central disc protrusion contacting the S1 nerve root s. Mild central, bilateral subarticular recess and foraminal stenosis. There are no masses. No osteomyelitis or discitis. No metastatic lesions noted within the bones. Ther e are a few small retroperitoneal lymph nodes which are not enlarged. Normal fatty nicole. MR/MR lumbar spine wo/w con [id number] IMPRESSION: 1. L4-5: Asymmetric disc bulging with a RIGHT foraminal disc protrusion. Disc encroachment into the RIGHT subarticular recess and RIGHT foramen. There is dis c contact on the RIGHT L4 and L5 nerve roots. 2. There is an additional soft tissue focus posterior to the mid L4 vertebral body. Favor this is a disc fragment from the L4-5 parent disc. This disc extend s cephalad from the disc level into the supra-articular recess. Deformity and c ontact on the RIGHT lateral thecal sac at the L4 level. 3. L5-S1: Moderate central disc protrusion contacting the S1 nerve roots. Mild central, bilateral subarticular recess and foraminal stenosis.
== END 2024-05-12 13:58 | disposition home or self-care (01) ==
LOC: RAD 13:57
PROVIDERS: PCP Family Medicine; Visit Provider Orthopaedic Surgery
DX: M51.36 Other intervertebral disc degeneration, lumbar region (principal); M51.26 Other intervertebral disc displacement, lumbar region; M25.78 Osteophyte, vertebrae; M99.63 Osseous and subluxation stenosis of intervertebral foramina of lumbar region; M51.27 Other intervertebral disc displacement, lumbosacral region
CPT/HCPCS: 72158

== ENCOUNTER 2025-01-04 10:04 | Outpatient (CLI) | payer OTHER, SELFPAY ==
--- NOTE | 2025-01-04 10:11 | FL_ITS ---
WS: [id number] Modified barium swallow, 01/04/2025 Clinical Data: Other dysphagia Comparison: None. Fluoroscopy time: 2min [id number] # of spot films: 1 Findings: The patient had normal oral preparation and there was slight premature spillage to the vallecula which clears normally. There is no aspiration or penetration. There is no significant residue in the hypopharynx. The barium tablet was ingested and flowed normally and promptly into the stomach. FL/FL barium swallow modifd [id number] Impression: 1. Minimal premature spillage to the vallecula. 2. No aspiration or penetration. 3. Normal propulsion of barium tablet from the oral cavity into the stomach.
== END 2025-01-04 10:05 | disposition home or self-care (01) ==
PROVIDERS: PCP Family Medicine; Visit Provider Specialist
DX: R13.19 Other dysphagia (principal)
CPT/HCPCS: 74230; 92611

== ENCOUNTER 2025-02-22 05:00 | Outpatient (RCR) | payer OTHER, SELFPAY | END 2025-03-24 23:59 | disposition home or self-care (01) | LOC: SPT 05:00 | PROVIDERS: Visit Provider Family Medicine | DX: M54.50 Low back pain, unspecified (principal); G89.29 Other chronic pain | CPT/HCPCS: 97161; 97530 ==

== ENCOUNTER 2025-03-25 05:00 | Outpatient (RCR) | payer OTHER, SELFPAY | END 2025-04-23 23:59 | disposition home or self-care (01) | LOC: SPT 05:00 | PROVIDERS: Visit Provider Family Medicine | DX: M54.50 Low back pain, unspecified (principal); G89.29 Other chronic pain | CPT/HCPCS: 97110 ==

== ENCOUNTER 2025-05-02 07:58 | Outpatient (CLI) | payer OTHER, SELFPAY ==
[2025-05-02 08:55] LABS: Hematocrit 46.3 % (37-53); Hemoglobin 15.20 g/dL (11.27-16.99); Mean Corpuscular HGB Conc 32.8 g/dL (30-55); Mean Corpuscular Hemoglobin 27.3 pg (27-33); Mean Corpuscular Volume 83.1 fl (82-101); Nucleated Red Blood Cells % 0 %; Platelet Count 209 10^3/cmm (157-399); Red Blood Count 5.57 10^6/uL (3.85-5.65); White Blood Count 5.67 10^3/uL (3.29-11.43)
[2025-05-02 09:01] LABS: Estmated Average Glucose 120; Hemoglobin A1C 5.8 % (4.0-6.0)
[2025-05-02 09:44] LABS: Free T4 Free Thyroxine 1.37 ng/dL (0.82-1.77); Thyroid Stimulating Hormone 1.62 uIU/mL (0.27-4.20); Tumor Marker Alpha Fetoprotein 2.1 ng/mL (0-8.3)
[2025-05-02 09:55] LABS: Alanine Aminotransferase 28 U/L (0-41); Albumin Level 4.2 g/dL (3.5-5.2); Alkaline Phosphatase 96 U/L (40-130); Anion Gap 17.3 (5-19); Aspartate Amino Transferase 23 U/L (0-40); Blood Urea Nitrogen 8 mg/dL (6-20); Calcium 9.0 mg/dL (8.5-10.5); Carbon Dioxide 26 mmol/L (22-29); Chloride 101 mmol/L (98-107); Cholesterol 197 mg/dL (0-200); Globulin 3.4 g/dL (1.3-4.6); Glucose 97 mg/dL (65-115); HDL Cholesterol 42 mg/dL (60-100); Osmolality Calculated 288 mOsm/kg (285-295); Potassium 4.3 mmol/L (3.5-5.1); Sodium 140 mmol/L (136-145); Total Protein 7.6 g/dL (6.6-8.7); Triglycerides 170 mg/dL (0-150)
== END 2025-05-02 07:59 | disposition home or self-care (01) ==
PROVIDERS: PCP Family Medicine; Visit Provider Family Medicine
DX: C62.90 Malignant neoplasm of unspecified testis, unspecified whether descended or undescended (principal); I10 Essential (primary) hypertension; Z68.27 Body mass index [BMI] 27.0-27.9, adult; E55.9 Vitamin D deficiency, unspecified
CPT/HCPCS: 36415; 80053; 80061; 82105; 82306; 83036; 83615; 84439; 84443; 84702; 85025

== ENCOUNTER 2025-05-05 11:49 | Outpatient (CLI) | payer OTHER, SELFPAY | END 2025-05-05 11:50 | disposition home or self-care (01) | LOC: LAB 11:51 | PROVIDERS: PCP Family Medicine; Visit Provider Family Medicine | DX: K21.9 Gastro-esophageal reflux disease without esophagitis (principal) | CPT/HCPCS: 87338 ==